=== PATIENT | female | born 1980 | race African-American/Black ===

== ENCOUNTER 2017-08-21 21:30 | Inpatient (IN) | payer OTHER ==
[2017-08-21] MEDS ORDERED: PROMETHAZINE HCL 25 MG/1 ML VIAL IVPUSH ONE (22:33)
[2017-08-21] MEDS ORDERED: BUTORPHANOL TARTRATE 1 MG/ML VIAL IVPB ONE (22:33)
[2017-08-21] MEDS ORDERED: DEXTROSE 5%-LACTATED RINGERS 1,000 ML IV SCH (22:45)
--- NOTE | 2017-08-21 22:47 | HP ---
Past Medical History - Primary Care Physician PCP:: Roseline Boyd - Admission Chief Complaint: 37 yrs , 39 weeks by sono , 38.4/7 weeks by dates is brought in active labor by EMT at 9.30 PM 08/21/17. Onset LP at 4.00 PM . care at [facility] in [facility] History of Present Illness: pt was transferred to [facility] from [facility] , due to h /o stillborn during last in 2005 No records available. she has h/o ? vanishing twin in current pt states she is being followed by [facility] . She is scheduled to be induced on 08/24/17 at [facility]. She gives h/i serial sonograms she denies h/o GDM or HTN or thrombophelia h/o UTi treated History Source: Patient - Past Medical History INFORMATION TECH: No: Alzheimer's, CVA, Dementia, Migraine, Multiple Sclerosis, Peripheral Neuropathy, Parkinson's, Seizure, Syncope, TIA, Vertigo, Other Cardiovascular: No: AFIB, Aneurysm, Aortic Insufficiency, Aortic Stenosis, CAD, CHF, Deep Vein Thrombosis, HTN, Hyperlipdemia, MD, Mitral Insufficiency, Mitral Stenosis, Murmur, Pulmonary Hypertension, Other Pulmonary: No: Asthma, Bronchitis, Cancer, COPD, O2 Dependent, Pneumonia, Previously Intubated, Pulmonary Embolus, Pulmonary Fibrosis, Sleep Apnea, Other Gastrointestinal: No: Ascites, Cancer, Constipation, Crohn's Disease, Diverticulitis, Diverticulosis, Esophageal Varices, Gastritis, GERD, GI Bleed, Hemorrhoids, Hiatal Hernia, Inflamatory Bowel Disease, Irritable Bowel Disease, Pancreatitis, Peptic Ulcer Disease, Ulcerative Colitis, Other Hepatobiliary: No: Cirrhosis, Cholelithiasis, Cholecystitis, Choledocholithiasis , Hepatitis A, Hepatitis B, Hepatitis C, Other Renal/: Yes: UTI ...: 6 ...Para: 5 ...Term: 5 (5 01/2001,03/2002, 03/2003, 10/2003 home delivery, 10/2005 stillborn ) ...LMP: 11/24/16 ... Weeks Gestation by Dates: 38.4 ...EDC by Dates: 08/31/17 ...EDC by Sono: 08/28/17 (39 weeks ) Additional OB History: 2005 LD h/o NO FHR found when she came in labor, wt 7'11" . [facility] Heme/Onc: Yes: Anemia Infectious Disease: No: STD's (denies) Psych: No: Addictions, Anxiety, Bipolar, Depression, Panic, Psychosis, Schizophrenia, Other Musculoskeletal: No: Bursitis, Chronic low back pain, Hemiparesis, Hemiplegia, Osteoarthritis, Paraplegia, Other Rheumatology: No: Fibromyalgia, Gout, Lupus, Rheumatoid Arthritis, Sarcoidosis, Vasculitis, Other ENT: No: Allergic Rhinitis, Sinusitis, Other Endocrine: No: Island's Disease, [place]'s Disease, Diabetes Insipidus, Diabetes Mellitus, Hyperparathyroidism, Hyperthyroidism, Hypothyroidism, Osteopenia, SIADH, Other - Past Surgical History Past Surgical History: Yes: None Hx Myomectomy: No Hx Transabdominal Cerclage: No - Smoking History Smoking history: Never smoked Have you smoked in the past 12 months: No - Alcohol/Substance Use Hx Alcohol Use: No History of Substance Use: reports: None - Social History History of Recent Travel: No Home Medications - Allergies Allergies/Adverse Reactions: Allergies Allergy/AdvReac Type Severity Reaction Status Date / Time No Known Allergies Allergy Verified 06/23/17 16:47 - Home Medications Home Medications: Ambulatory Orders Ferrous Sulfate 1 tab PO DAILY 06/23/17 Vit/Iron Fumarate/FA [ Tablet] 1 tab PO DAILY 06/23/17 Physical Exam - Maternity Vital Signs: Selected Entries 08/21/17 21:30 Temperature 97.8 F Pulse Rate 106 H Respiratory 20 Rate Blood Pressure 120/75 Weight 236 lb Constitutional: Yes: Calm, Moderate Distress, Obese Eyes: Yes: WNL HENT: Yes: Normocephalic Neck: Yes: WNL Cardiovascular: Yes: WNL, Regular Rate and Rhythm Lungs: Clear to auscultation Breast(s): Yes: WNL - Abdominal Exam/OB Fundal Height: 38 Number of Fetuses: Single Presentation: Vertex (exam at 10.30 pm) Contractions: Yes Regularity: Irregular (3-5 min) Intensity: Mod/Strong Monitor Mode: External Heart Rate (range): 140 Heart Rate Location: [facility] Category: I Accelerations: Uniform Decelerations: None - Vaginal Exam/OB Vaginal Bleediing: Bloody Show Speculum Exam: No Dilatation (cm): 8 Effacement (%): 100 Amniotic Membrane Status: Intact Presentation: Vertex/Position Station: -2 - Physical Exam Musculoskeletal: Yes: WNL Extremities: Yes: WNL. No: Calf Tenderness Edema: Yes Edema: LLE: 1+, RLE: 1+ Integumentary: Yes: Tattoos Deep Tendon Reflex Grade: Normal +2 ...Motor Strength: WNL Psychiatric: Yes: WNL, Alert, Oriented - Labs Lab Results: Laboratory Tests 08/21/17 08/21/17 22:30 22:30 WBC 12.4 H D Hgb 11.9 Hct 36.1 Plt Count 363 Sodium 137 Potassium 4.4 Chloride 105 Carbon Dioxide 21 BUN 7 Creatinine 0.8 Random Glucose 115 H AST 22 ALT 30 Laboratory Tests 08/21/17 08/22/17 08/22/17 22:30 00:10 00:10 PT with INR 11.40 INR 1.01 PTT (Actin FS) 28.9 HIV 1&2 Antibody Screen Negative HIV P24 Antigen Negative Blood Type A POSITIVE Antibody Screen Negative Problem List - Problems (1) with 39 completed weeks gestation Code(s): Z3A.39 - 39 WEEKS GESTATION OF (2) Labor established Code(s): BUU1457 - (3) with care elsewhere, antepartum Code(s): Z34.90 - ENCNTR FOR SUPRVSN OF NORMAL , UNSP, UNSP TRIMESTER (4) AMA (advanced maternal age) multigravida 35+ Code(s): O09.529 - SUPERVISION OF ELDERLY MULTIGRAVIDA, UNSPECIFIED TRIMESTER Assessment/Plan 37 yrs (AMA) , , h/o full term stillborn during LDin 2005, care at [facility], no records available Gbs unknown active labor Plan Gbs prophylaxis with Ampicillin Stadol 1 mg + Phenrgan 25 mg for labor prophylaxis vaginal delivery anticipated attempts are made to obtain medical records from [facility] L&D
[2017-08-21 23:00] LABS: BASOPHIL 0.6 % (0-2.0); EOSINOPHIL 0.1 % (0-4.5); MCH 27.1 pg (25.7-33.7); MCHC 32.9 g/dl (32.0-36.0); MEAN CELL VOLUME 82.5 fl (80-96); MEAN PLT VOLUME 9.2 fl (7.5-11.1); NEUTROPHILS 81.7 % (42.8-82.8); PLATELET COUNT 363 K/MM3 (134-434); RDW 15.2 % (11.6-15.6); WHITE BLOOD COUNT 12.4 K/mm3 (4.0-10.0)
[2017-08-21 23:20] LABS: ALBUMIN 2.7 g/dl (3.4-5.0); ANION GAP 11 (8-16); BILIRUBIN,TOTAL 0.7 mg/dL (0.2-1.0); CALCIUM 9.5 mg/dL (8.5-10.1); CO2 21 mmol/L (21-32); CREATININE 0.8 mg/dL (0.55-1.02); GLUCOSE,RANDOM 115 mg/dL (74-106); SGOT/AST 22 U/L (15-37); SGPT/ALT 30 U/L (12-78); TOT PROT 7.1 g/dl (6.4-8.2)
[2017-08-21 23:21] LABS: ALK PHOS 210 U/L (45-117)
[2017-08-21 23:38] VITALS: BMI 40.5
[2017-08-21] MEDS ORDERED: AMPICILLIN - 2 GM in SODIUM CHLORIDE 100 ML IVPB ONE (23:45)
--- NOTE | 2017-08-22 00:06 | PN ---
Progress Note, Labor Vaginal Exam #1 Labor Exam Date: 08/21/17 Labor Exam Time: 22:55 Heart Rate (range): 140 Dilatation: 8-9 Effacement (%): 100 Amniotic Membrane Status: Ruptured (AROM clear , scalp elecrode applied) Presentation: Vertex/Position Station: -1 Remarks: FHR cat-1 Uc irregular 3-6 min 11.03 pm Stadol1 mg + phenrgan 25 mg iv stat was given Vaginal Exam #2 Labor Exam Date: 08/22/17 Labor Exam Time: 00:35 Heart Rate (range): 140 Dilatation: 8-9 Effacement (%): 90% Amniotic Membrane Status: Ruptured Presentation: Vertex/Position Station: -1 (cervix is become edematous) Remarks: BP 135/74, pulse 109, temp 98.0 uc mild to moderate 3-6 min. pt has been pushing with uc , recommend not to push FHR cat-1 Plan stadol 1 mg + phenrgan 25 mg iv stat pitocin augmentation Vaginal Exam #3 Labor Exam Date: 08/22/17 Labor Exam Time: 01:25 Heart Rate (range): 145 Dilatation: 9 Effacement (%): 90 Amniotic Membrane Status: Ruptured Presentation: Vertex/Position Station: -1 (-1/0, cx ant lip edematous) Remarks: pt keep pushing with each uc uc q 2-3 min fhr 145 reactice Vaginal Exam #4 Labor Exam Date: 08/22/17 Labor Exam Time: 01:55 Heart Rate (range): 140 Dilatation: rim Effacement (%): 90 Amniotic Membrane Status: Ruptured Presentation: Vertex/Position Station: 0 (ant lip edematous) Remarks: uc 2-3 min fhr 140 cat-1 Selected Entries 08/22/17 01:00 Pulse Rate 113 H Blood Pressure 113/82 Vaginal Exam #5 Labor Exam Date: 08/22/17 Labor Exam Time: 02:50 Heart Rate (range): 109-120 Dilatation: 10 Effacement (%): 100 Station: +2 Remarks: early decels pt pushing Selected Entries 08/22/17 02:00 Temperature 98.6 F Pulse Rate 115 H Blood Pressure 121/75
[2017-08-22] MEDS ORDERED: PROMETHAZINE HCL 25 MG/1 ML VIAL IVPUSH ONE (00:45)
[2017-08-22] MEDS ORDERED: BUTORPHANOL TARTRATE 1 MG/ML VIAL IVPUSH ONE (00:45)
[2017-08-22] MEDS ORDERED: OXYTOCIN 15 UNITS/ LR 250 ML 15 UNIT/250 ML INFUS.BAG IVPB SCH (01:00)
[2017-08-22 01:06] LABS: INR 1.01 (0.82-1.09); PROTHROMBIN TIME (PATIENT) 11.4 SEC (9.98-11.88)
[2017-08-22 01:10] LABS: ACTIVATED PTT 28.9 SECONDS (26.9-34.4)
[2017-08-22 02:05] LABS: HIV 1 & 2 AB NEGATIVE; HIV 1 AGp24 NEGATIVE
[2017-08-22] MEDS ORDERED: oxyCODONE HCL 5 MG TABLET PO PRN (03:17)
[2017-08-22] MEDS ORDERED: BISACODYL 10 MG SUPP.RECT RC PRN (03:17)
[2017-08-22] MEDS ORDERED: BENZOCAINE 28 GM HEMORRHOIDAL OINTMENT TP PRN (03:17)
[2017-08-22] MEDS ORDERED: ACETAMINOPHEN 325 MG TABLET (FP) PO PRN (03:17)
[2017-08-22] MEDS ORDERED: METHYLERGONOVINE MALEATE 0.2 MG/1 ML AMP IM PRN (03:17)
[2017-08-22] MEDS ORDERED: WITCH HAZEL 50% (TUCKS) 40 PAD/JAR PAD TP PRN (03:17)
[2017-08-22] MEDS ORDERED: BENZOCAINE 20% 57 GM BOTTLE TP PRN (03:17)
[2017-08-22] MEDS ORDERED: IBUPROFEN 600 MG TABLET (FP) PO PRN (03:17)
--- NOTE | 2017-08-22 03:28 | PN ---
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
[2017-08-22] MEDS ORDERED: OXYTOCIN 20 UNITS in 0.9% NS 20 UNIT/1,000 ML INFUS.BAG IV SCH (03:30)
[2017-08-22 03:40] LABS: ARTERIAL BLOOD GAS BASE EXCESS -4.7 meq/l (-2-2); ARTERIAL BLOOD GAS HCO3 25.8 meq/L (22-26)
[2017-08-22] MEDS ORDERED: AMPICILLIN - 1 GM in SODIUM CHLORIDE 100 ML IVPB SCH (03:45)
[2017-08-22 03:49] LABS: VENOUS BLOOD GAS HCO3 21.8 meq/L (19-25); VENOUS PH 7.29 (7.32-7.42)
[2017-08-22 03:54] LABS: ARTERIAL BLD GAS O2 SATURATION 23.9 % (90-98.9); ARTERIAL BLOOD GAS PO2 17.9 mmHg (80-100); ARTERIAL BLOOD GAS pH 7.19 (7.35-7.45)
[2017-08-22 05:27] LABS: URINE APPEARANCE CLEAR; URINE BILIRUBIN NEGATIVE (NEGATIVE); URINE BLOOD 2+ (NEGATIVE); URINE COLOR YELLOW; URINE GLUCOSE (UA) NEGATIVE (NEGATIVE); URINE KETONE NEGATIVE (NEGATIVE); URINE NITRITE NEGATIVE (NEGATIVE); URINE PROTEIN NEGATIVE (NEGATIVE); URINE UROBILINOGEN NEGATIVE mg/dL (0.2-1.0)
[2017-08-22 05:29] LABS: URINE MARIJUANA THC NEGATIVE ng/ml (CUTOFF=50)
[2017-08-22 05:34] LABS: URINE MUCUS RARE; URINE RBC 23 /hpf (0-3); URINE WBC 3 /hpf (3-5)
[2017-08-22] MEDS: FERROUS SO4 325 MG TABLET (FP) PO SCH ×2 (08:17→19:05)
[2017-08-22] MEDS: PRENATAL VITAMINS W/ FOLIC ACID TABLET (FP) PO SCH (09:22)
[2017-08-22 12:00] LABS: URINE LEUK ESTERASE TRACE (NEGATIVE)
--- NOTE | 2017-08-22 19:07 | CON.PSY ---
Psychiatry Consult Chief Complaint: Asked to see this patient, a 37 year old female with a hx of mental illnes. History of Present Problem: Patient states that she had care at [facility] and later her care was transferred to [facility] high risk clinic She has been off medications now x 2 years and has been seeing a therapist at " [facility]" on a weekly basis and she intends to continue. She was on seroquel. Patient denies psychiatric hospitalizations, post mental complications such as PP Depression or psychoses Patint denies suicidal attempt in the past. She admits to feeling' fine' Patient states that two years ago her two young sons were arrested for some kind of 'criminal behavio- she did not wish to elaborate As part of the treatment plan, she was seen by a therapist and then a psychiatrist at [facility], diagnosed her with Bipolar disorder. She denies hx of danielle. Patient admits to depressive symptoms in the past She attributes her symptoms to traumatic childhood stressors and poor relationship with her mother. Strong family history of Bipolar mother and brother. Symptoms: denies: Depressed Mood, Anhedonia, Worthlessness/Guilt, Decreased Energy, Suicidality, Self destructive thoughts, Appetite Disturbance, Weight change, Hopelessness, Sleep Disturbance, Diurnal Mood Changes, Impaired Concentration, Decreased Motivation, Memory Impairment, Irritability, Expansive / Elevated Mood, Grandiosity, Hyper-religiosity, Excessive Energy, Racing Thoughts, Anxiety, Panic Attacks, Obsessive Thoughts, Flashbacks, Compulsive Behaviors, Agoraphobia, Restlessness, Phobias, Bulimic Behavior, Anorexic Behavior, Somatic Symptoms, Sexual Dysfunction, Inability to Control Temper, Aggressivity, Impulsivity, Depersonalization, Derealization, Amnesic Episodes, Disorganized/Disruptive Thoughts, Delusions, Hallucinations, Paranoia, Conduct Problems, Oppositionalism, Attention Deficit, Learning Problems, Firesetting, Enuresis, Lying, Hyperactivity, Other - Current Medications Current Medications: Active Medications Acetaminophen (Tylenol -) 650 mg PO Q3H PRN PRN Reason: PAIN Benzocaine (Americaine 20% [place] -) 1 spray TP PRN PRN PRN Reason: PAIN Benzocaine (Americaine Ointment -) 1 applic TP PRN PRN PRN Reason: PAIN Bisacodyl (Dulcolax Suppository -) 10 mg RC PRN PRN PRN Reason: CONSTIPATION Ferrous Sulfate (Feosol -) 325 mg PO BIDWM [facility] Last Admin: 08/22/17 08:17 Dose: 325 mg Oxytocin/Sodium Chloride (Normal Saline+20 Units Oxytocin -) 20 unit in 1,000 mls @ 125 mls/hr IV ASDIR [facility] Last Admin: 08/22/17 05:10 Dose: 125 mls/hr Ibuprofen (Motrin -) 600 mg PO Q4H PRN PRN Reason: PAIN Methylergonovine Maleate (Methergine Injection -) 0.2 mg IM Q4H PRN PRN Reason: EXCESSIVE BLEEDING (L&D) Oxycodone HCl (Roxicodone -) 5 mg PO Q6H PRN PRN Reason: PAIN Multivit/Folic Acid/Iron ( Vitamins (Sjr) -) 1 tab PO DAILY [facility] Last Admin: 08/22/17 09:22 Dose: 1 tab Senna/Docusate Sodium (Pericolace -) 2 tablet PO HS PRN PRN Reason: CONSTIPATION Witch Alissa/Glycerin (Tucks Pads -) 1 pad TP PRN PRN PRN Reason: PAIN - Allergies Allergies: Allergies Allergy/AdvReac Type Severity Reaction Status Date / Time No Known Allergies Allergy Verified 06/23/17 16:47 - Current Living Status Usual Living Arrangement: Other (5 children) - Current Mental Status Evaluation Appearance: Other (appropriate in hospital gown good eye contact, and pleasant.) Attitude: Cooperative - Affect Affect: Full Range Appropriateness: Appropriate to Content - Mood Mood: Euthymic - Speech/Language Expressive: Coherent Receptive: Age Appropriate Comprehension of Spoken Words - Psychomotor Activity Psychomotor Activity: Normal - Thought Process Thought Process: Intact - Thought Content Hallucinations: Absent Delusions: Absent - Self Perception Self Perception: No Impairment - Cognition Attention: Alert Orientation: Time, Person, Place Memory, Short Term: 3/3 Memory, Remote with Promptin/3 - Concentration Simple Calculations Intact: Yes - Abstraction Proverb Interpretation: Intact Judgement: Intact - Insight Insight: Intact - Impulse Control Impulse Control: Good Control - Suicidal Ideation Suicidal Ideation: No - Homicidal Ideation Homicidal Ideation: No Assessment/Plan Patient with a history of bipolar disorder and not requiring any meds at this time She will be followed for psychotherapy Reviewed signs and symptoms of Post Depression and PP psychosis with her and that she should seek medical attention Baby's father with whom she lives was also present
[2017-08-23 08:33] LABS: BASOPHIL 0.3 % (0-2.0); EOSINOPHIL 0.7 % (0-4.5); MCH 27.2 pg (25.7-33.7); MCHC 32.9 g/dl (32.0-36.0); MEAN CELL VOLUME 82.7 fl (80-96); MEAN PLT VOLUME 8.7 fl (7.5-11.1); NEUTROPHILS 64.5 % (42.8-82.8); PLATELET COUNT 255 K/MM3 (134-434); RDW 15.5 % (11.6-15.6); WHITE BLOOD COUNT 10.7 K/mm3 (4.0-10.0)
[2017-08-23] MEDS: PRENATAL VITAMINS W/ FOLIC ACID TABLET (FP) PO SCH (10:11)
[2017-08-23] MEDS: FERROUS SO4 325 MG TABLET (FP) PO SCH ×2 (10:11→17:25)
--- NOTE | 2017-08-23 14:32 | PN ---
Post Progress Note - Subjective Subjective: 37 yo Para 5 with mental illness, seen and evaluated. She was seen by Psychiatrist. She denies any depression at the moment. Post Day: 1 Type of Delivery: Vital Signs: Vital Signs Temperature 98 F 08/23/17 10:00 Pulse Rate 91 H 08/23/17 10:00 Respiratory Rate 20 08/23/17 10:00 Blood Pressure 95/70 08/23/17 10:00 O2 Sat by Pulse Oximetry (%) 100 08/22/17 03:10 Breast Exam: Yes: Soft Uterus: Yes: Fundus Firm Abdomen/GI: Yes: Abdomen soft, Tolerating PO Lochia: Yes: Rubra Lochia, amount: Moderate Extremities: Yes: Calves non-tender Perineum: Yes: Intact Activity: Ambulating - Labs Labs: CBC WBC 10.7 K/mm3 (4.0-10.0) H 08/23/17 08:00 RBC 3.87 M/mm3 (3.60-5.2) 08/23/17 08:00 Hgb 10.5 GM/dL (10.7-15.3) L D 08/23/17 08:00 Hct 32.0 % (32.4-45.2) L 08/23/17 08:00 MCV 82.7 fl (80-96) 08/23/17 08:00 MCH 27.2 pg (25.7-33.7) 08/23/17 08:00 MCHC 32.9 g/dl (32.0-36.0) 08/23/17 08:00 RDW 15.5 % (11.6-15.6) 08/23/17 08:00 Plt Count 255 K/MM3 (134-434) D 08/23/17 08:00 MPV 8.7 fl (7.5-11.1) 08/23/17 08:00 Neutrophils % 64.5 % (42.8-82.8) D 08/23/17 08:00 Lymphocytes % 25.4 % (8-40) D 08/23/17 08:00 Monocytes % 9.1 % (3.8-10.2) 08/23/17 08:00 Eosinophils % 0.7 % (0-4.5) D 08/23/17 08:00 Basophils % 0.3 % (0-2.0) 08/23/17 08:00 Problem List - Problems (1) Status post normal vaginal delivery Code(s): [id number] - Assessment/Plan Status post vaginal delivery Stable Continue care
--- NOTE | 2017-08-23 15:11 | DS ---
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 Vital Signs: Vital Signs Temperature 98 F 08/23/17 10:00 Pulse Rate 91 H 08/23/17 10:00 Respiratory Rate 20 08/23/17 10:00 Blood Pressure 95/70 08/23/17 10:00 O2 Sat by Pulse Oximetry (%) 100 08/22/17 03:10 Constitutional: Yes: Well Nourished Eyes: Yes: WNL HENT: Yes: WNL Neck: Yes: WNL Cardiovascular: Yes: WNL Respiratory: Yes: WNL, Other (h/o TB in past 2006 treated Chest Xray 08/23/17 negative) Gastrointestinal: Yes: WNL ...Rectal Exam: Yes: WNL Renal/: Yes: CVA Tenderness - Right ....Post : Yes: Uterus firm, Uterus non-tender, Moderate lochia rubra ( perineum intact) Breast(s): Yes: WNL (BF) Musculoskeletal: Yes: WNL Extremities: Yes: WNL. No: Calf Tenderness Edema: LLE: 1+, RLE: 1+ Integumentary: Yes: Other (rt leg 2 ingrown hair, follicuitis noted ( h/o shaving the leg) . clean with betadine swabs locally) Neurological: Yes: WNL ...Motor Strength: WNL Psychiatric: Yes: WNL, Other (psyche consult obtained. h/o bipolar disorder in past, no meds for 2 years . consult reviwed . 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 of 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 Import 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/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 Ammunition Assembly Present: No Gender: Male Weight: 7 lb 8 oz Position: Left, OA Total Hours ROM (Hrs/Mins): 3 hours 1 minute - 1 Minute Total Score: 9 5 Minutes Total Score: 9 - [place] Feeding Plan Initial Plan: Elected not to breastfeed exclusively throughout hospitalization Remarks - Remarks Remarks: 37 yrs 39 weeks gestation , PNC at [facility] high risk clinic at [facility] , came by ambulence GBS unknown rx IV Ampicillin x2 doses were given Stadol 1 mg + phenrgan 25 mg iv x2 doses were given for labor analgesia Intrapartum course uneventful . Note was transferred to NICU due to hypoglycemia , doing well. pt pp course uneventful discharge 08/24/17 Discharge Summary Reason For Visit: ADMIT LABOR Current Active Problems AMA (advanced maternal age) multigravida 35+ (Acute) Labor established (Acute) with 39 completed weeks gestation (Acute) with care elsewhere, antepartum (Acute) Status post normal vaginal delivery (Acute) Condition: Stable - Instructions Diet, Activity, Other Instructions: Post Instructions DIET: Continue good diet high in protein, calcium, and iron rich foods. Drink at least eight (8) glasses of water daily in addition to other fluids. ct Regular diet MEDICATIONS: Continue vitamins and iron as previously directed. Motrin and Tylenol may be taken for minor discomfort. ACTIVITY: Mild to moderate exercise may be started in two (2) weeks. Take frequent rest periods. Resume normal activity after six (6) week check up. WOUND CARE OF OPERATIVE SITE: Continue use of perineal bottle until vaginal discharge stops. Keep area clean. Shower daily. Keep abdominal wound dry. Report any drainage or redness to physician. Tub baths, tampons and douches are not permitted for [address] Breast feeding & or Bottle feeding BREAST CARE: (For those that are not breast feeding): If engorgement occurs: Wear tight fitting bra. Take Tylenol or Motrin for pain. Apply cold packs (ice in bags to each breast ) FAMILY PLANNING: There are many control alternatives to pursue and they should be discussed at your first office visit. You may resume sexual activity after your six (6) week check up. (Remember, breast feeding is not a contraceptive) NEXT PHYSICIAN APPOINTMENT: Be certain to call for a six (6) week appointment, unless otherwise directed. . contact your clinic Call Clinic or got to Emergency Dept if you have any of the following: Heavy vaginal bleeding Painful urination Leg pain Unusual odor noted to vaginal bleeding High fever Red streaking noted on breast Referrals: Roseline Boyd MD [Staff Physician] - Disposition: HOME - Home Medications Comprehensive Discharge Medication List: Ambulatory Orders Ferrous Sulfate 1 tab PO DAILY 06/23/17 Vit/Iron Fumarate/FA [ Tablet] 1 tab PO DAILY 06/23/17 Acetaminophen [Tylenol .Regular Strength -] 650 mg PO Q3H PRN tablet 08/23/17 Ferrous Sulfate [Feosol] 325 mg PO BIDWM #60 tab 08/23/17 Ibuprofen [Motrin -] 200 mg PO Q4H PRN tablet 08/23/17 Vitamins (Sjr) - 1 tab PO DAILY #30 tablet 08/23/17
[2017-08-23] MEDS ORDERED: SENNOSIDES/DOCUSATE COMBO (SENNA PLUS) TABLET (UD) PO PRN (22:00)
--- NOTE | 2017-08-24 07:45 | PN ---
Progress Note (short form) - Note Progress Note: ppd 2 doing well, no c/o CBC, BMP 08/23/17 08:00 08/21/17 22:30 Last Vital Signs Temp Pulse Resp BP Pulse Ox 98.0 F 87 20 96/54 100 08/23/17 22:00 08/23/17 22:00 08/23/17 22:00 08/23/17 22:00 08/22/17 03:10 abdomen soft, uterus firm, non tender lochia mild no calf tenderness plan d/c home , follow up [facility] care 4 weeks
[2017-08-24 10:54] VITALS: BP 113/48; PULSE 92; TEMP 98.5
[2017-08-24] MEDS: FERROUS SO4 325 MG TABLET (FP) PO SCH (11:27)
[2017-08-24] MEDS: PRENATAL VITAMINS W/ FOLIC ACID TABLET (FP) PO SCH (11:27)
== END 2017-08-24 13:15 | disposition home or self-care (01) | DRG 560 ==
LOC: JLDR 21:30 → J3W 08-22 05:32
PROVIDERS: ADMIT Obstetrics & Gynecology; ATTEND Obstetrics & Gynecology
PROC: 10E0XZZ Delivery of Products of Conception, External Approach (ICD-10-PCS; principal; 2017-08-22)
PROC: 10907ZC Drainage of Amniotic Fluid, Therapeutic from Products of Conception, Via Natural or Artificial Opening (ICD-10-PCS; 2017-08-22)
DX: O99.214 Obesity complicating childbirth (principal); E66.8 Other obesity; Z68.41 Body mass index [BMI] 40.0-44.9, adult; Z3A.39 39 weeks gestation of pregnancy; Z37.0 Single live birth
CPT/HCPCS: 36415; 36600; 59409; 71020-TC; 80053; 80307; 81003; 81015; 82803; 85025; 85610; 85730; 86593; 86762; 86850; 86900; 86901; 87340; 87389

== ENCOUNTER 2021-03-22 18:00 | Inpatient (IN) | payer OTHER ==
[2021-03-22 18:49] VITALS: BMI 43.2
[2021-03-22 19:38] LABS: BASO % 0.3 % (0-2.0); EOS % 0.6 % (0-4.5); HEMATOCRIT 34.6 % (32.4-45.2); HEMOGLOBIN 11.6 GM/dL (10.7-15.3); LYMPH % 29.7 % (8-40); MCH 27.5 pg (25.7-33.7); MCHC 33.4 g/dl (32.0-36.0); MEAN CELL VOLUME 82.3 fl (80-96); MEAN PLT VOLUME 8.5 fl (7.5-11.1); MONO % 9.4 % (3.8-10.2); PLATELET COUNT 295 10^3/uL (134-434); RBC 4.21 M/mm3 (3.60-5.2); RDW 16.9 % (11.6-15.6); WHITE BLOOD COUNT 7.4 K/mm3 (4.0-10.0)
[2021-03-22 19:49] LABS: INR 0.93 (0.83-1.09); PROTHROMBIN TIME (PATIENT) 11.3 SEC (9.7-13.0)
[2021-03-22 19:51] LABS: ACTIVATED PTT 25.7 SECONDS (25.2-36.5)
[2021-03-22 19:53] LABS: BLOOD UREA NITROGEN 9.3 mg/dL (7-18); CALCIUM 8.6 mg/dL (8.5-10.1)
[2021-03-22] MEDS ORDERED: OXYTOCIN 30 UNITS in 0.9% NS 30 UNIT/500 ML INFUS.BAG IVPB ONE (20:01)
[2021-03-22 20:11] LABS: CREATININE 0.8 mg/dL (0.55-1.3)
[2021-03-22] MEDS ORDERED: DEXTROSE 5%-LACTATED RINGERS 1,000 ML IV SCH (20:15)
[2021-03-22] MEDS ORDERED: OXYTOCIN 30 UNITS in 0.9% NS 30 UNIT/500 ML INFUS.BAG IVPB SCH (20:45)
[2021-03-22] MEDS ORDERED: BUTORPHANOL TARTRATE 2 MG/ML VIAL ONE (21:45)
[2021-03-22] MEDS ORDERED: PROMETHAZINE HCL 25 MG/1 ML VIAL ONE (21:46)
[2021-03-22] MEDS ORDERED: PROMETHAZINE HCL 25 MG/1 ML VIAL IVPB ONE (21:50)
[2021-03-22] MEDS ORDERED: BUTORPHANOL TARTRATE 2 MG/ML VIAL IVPB ONE (21:50)
[2021-03-22] MEDS ORDERED: OXYTOCIN 20 UNITS in 0.9% NS 20 UNIT/1,000 ML INFUS.BAG IV ONE (23:48)
[2021-03-23] MEDS ORDERED: BENZOCAINE 28 GM HEMORRHOIDAL OINTMENT TP PRN (00:19)
[2021-03-23] MEDS ORDERED: IBUPROFEN 600 MG TABLET (FP) PO PRN (00:19)
[2021-03-23] MEDS ORDERED: ACETAMINOPHEN 325 MG TABLET (FP) PO PRN (00:19)
[2021-03-23] MEDS ORDERED: WITCH HAZEL 50% (TUCKS) 40 PAD/JAR PAD TP PRN (00:19)
[2021-03-23] MEDS ORDERED: BENZOCAINE 20% 57 GM BOTTLE TP PRN (00:19)
[2021-03-23] MEDS ORDERED: METHYLERGONOVINE MALEATE 0.2 MG/1 ML AMP IM PRN (00:19)
[2021-03-23] MEDS ORDERED: BISACODYL 10 MG SUPP.RECT RC PRN (00:19)
[2021-03-23] MEDS ORDERED: D5W-LR W/ 20 UNITS OXYTOCIN 20 UNIT/1,000 ML INFUS.BAG IV SCH (00:30)
[2021-03-23] MEDS ORDERED: OXYTOCIN 20 UNITS in 0.9% NS 20 UNIT/1,000 ML INFUS.BAG IV ONE (01:45)
[2021-03-23 02:04] LABS: CORD BASE EXCESS -6.4 mmol/L (0-2); CORD HCO3 20.2 mmHg (20-29); CORD pH 7.28 (7.14-7.44)
[2021-03-23 02:05] LABS: CORD BASE EXCESS -5.8 mmol/L (0-2); CORD HCO3 21.1 mmHg (20-29); CORD PCO2 46.2 mmHg (30-78); CORD pH 7.278 (7.14-7.44)
[2021-03-23] MEDS: PRENATAL VITAMINS W/ FOLIC ACID TABLET (FP) PO SCH (09:43)
[2021-03-23] MEDS: FERROUS SO4 325 MG TABLET (FP) PO SCH ×2 (09:43→21:51)
[2021-03-23 11:10] LABS: BASO % 0.2 % (0-2.0); EOS % 0.2 % (0-4.5); HEMATOCRIT 33.7 % (32.4-45.2); HEMOGLOBIN 10.9 GM/dL (10.7-15.3); LYMPH % 14.6 % (8-40); MCH 27.2 pg (25.7-33.7); MCHC 32.5 g/dl (32.0-36.0); MEAN CELL VOLUME 83.7 fl (80-96); MEAN PLT VOLUME 8.9 fl (7.5-11.1); MONO % 8.5 % (3.8-10.2); NEUT % 76.5 % (42.8-82.8); PLATELET COUNT 274 10^3/uL (134-434); RBC 4.02 M/mm3 (3.60-5.2); RDW 17.1 % (11.6-15.6); WHITE BLOOD COUNT 11.2 K/mm3 (4.0-10.0)
[2021-03-23 14:28] LABS: POC NITRAZINE POS
[2021-03-24 09:24] VITALS: BP 148/73; PULSE 93; TEMP 98.7
[2021-03-24] MEDS: PRENATAL VITAMINS W/ FOLIC ACID TABLET (FP) PO SCH (10:06)
[2021-03-24] MEDS: FERROUS SO4 325 MG TABLET (FP) PO SCH (10:06)
[2021-03-24] MEDS ORDERED: SENNOSIDES/DOCUSATE COMBO (SENNA PLUS) TABLET (UD) PO PRN (22:00)
== END 2021-03-24 12:20 | disposition home or self-care (01) | DRG 560 ==
LOC: JLDR 18:00 → J3W 03-23 03:42
PROVIDERS: ADMIT Family Medicine; ATTEND Family Medicine
PROC: 0HQ9XZZ Repair Perineum Skin, External Approach (ICD-10-PCS; principal; 2021-03-23)
PROC: 10E0XZZ Delivery of Products of Conception, External Approach (ICD-10-PCS; 2021-03-23)
DX: O70.0 First degree perineal laceration during delivery (principal); Z3A.39 39 weeks gestation of pregnancy; Z37.0 Single live birth
CPT/HCPCS: 36415; 36600; 59409; 80048; 82803; 83986-QW; 85025; 85610; 85730; 86780; 86850; 86900; 86901; C9803; U0003; U0005